=== PATIENT | female | born 1950 | race Caucasian/White ===

== ENCOUNTER → 2017-05-15 | Outpatient (CLI) | payer BC ==
--- NOTE | 2017-05-15 15:49 | CONS ---
CONSULTATION REASON FOR CONSULTATION: Consultation note for sleep apnea HISTORY OF PRESENT ILLNESS: This patient is coming in to renew her CPAP machine and supplies. The patient was diagnosed having sleep apnea back in 2007. At that time, the patient was confirmed to have obstructive sleep apnea and she was titrated to a CPAP pressure of 9 cm of water. The evaluation back then was done by the by Dr. Marquez. Over this past 9 years her treatment has been successful. She has not gained any significant weight and she has maintained a body weight which has been close to low 200s. In fact, she has lost approximately 15 pounds since 2007. Note that at the time of her CPAP titration the patient used to weight 218 pounds and currently she is down to 203. Despite this, weight loss, she is still very compliant with CPAP therapy. She needs her machine every night to stay refreshed and alert during the day. Utilizing a AirFit P10 nose pillows. She is averaging around 7-8 hours of sleep every night. She is in need for supplies and she has also needed in need for a new CPAP machine knowing that the machine itself is not turning off automatically and she has to sometimes unplug the machine itself to turn the system off. The benefit of treatment is still there. No other complaints otherwise for now. PAST MEDICAL HISTORY: Obstructive sleep apnea and hypothyroidism. 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 MEDICATIONS: Include levothyroxine 25 mcg p.o. daily. ALLERGIES: CODEINE AND SULFA. SOCIAL HISTORY: Socially nonsmoker, no history of alcohol. No history of IV drugs. FAMILY HISTORY: Negative for sleep apnea. REVIEW OF SYSTEMS: 12-point review of system was done. Positive findings are mentioned above in the history of present illness. For now no snoring while on CPAP therapy. No insomnia. No choking or gasping sensation. No grinding of the teeth. No sleepwalking or sleep talking. No nightmares. No sweating. No anxiety or panic attacks. No heartburn. No palpitations. No shortness of breath. No chest pain. No other complaints otherwise. PHYSICAL EXAMINATION: BP is 120/75, pulse 98, respirations 16, temperature 98.0, Saturation is 98% on room air. Weight is 203. Height is 5 feet 2 inches and neck size 15.5 inches. General appearance calm comfortable. HEENT: Mallampati class 3. No goiter or neck masses. NECK: Supple. Head is atraumatic, normocephalic. LUNGS: Clear to auscultation. HEART: Sounds regular rhythm. Normal S1, S2. No S3, S4. No murmurs. ABDOMEN: Soft, nontender. No organomegaly. EXTREMITIES: No edema. No cyanosis or clubbing. Skin is negative for any cellulitis, wounds or ulcers. NEUROLOGIC: Alert and oriented x3. No focal neurological deficit. IMPRESSION: 1. Obstructive sleep apnea currently on CPAP pressure of 9 cm of water. Details discussed above. 2. Hypothyroidism. PLAN: The patient has a malfunctioning CPAP unit. I think it is time to upgrade her machine to an AutoSet CPAP Resmet unit which will be set at a fixed pressure of 9 with a C flex of 3. We will renew all of her CPAP supplies. I do not see the need for another sleep study as long as the patient has been very compliant with CPAP therapy over the years and she is benefitting from the treatment. I will send orders for new CPAP unit and the supplies and the patient will see me back in 30 to 90 days to assess clinical response and compliance. KIARRA / TYLER: [id number] /
== END ==
LOC: SLEEP 14:31
PROVIDERS: ATTEND Internal Medicine Critical Care Medicine
DX: G47.33 Obstructive sleep apnea (adult) (pediatric) (principal); E03.9 Hypothyroidism, unspecified; Z88.2 Allergy status to sulfonamides; Z88.5 Allergy status to narcotic agent; Z79.899 Other long term (current) drug therapy
CPT/HCPCS: 99211

== ENCOUNTER → 2017-08-07 | Outpatient (CLI) | payer BC ==
--- NOTE | 2017-08-07 20:38 | PN ---
PROGRESS NOTE CPAP COMPLIANCE FOLLOWUP: This is pleasant 66-year-old female patient with an established diagnosis of obstructive sleep apnea based on a sleep study that was done in 2007. The patient was being treated with a CPAP pressure of 9 cm of water. The patient saw me in the sleep center on 05/15/2017. At that time the patient's old CPAP machine was malfunctioning. I ordered a new CPAP machine for her, and the patient is coming in for a compliancy check. The patient has obtained a new ResMed CPAP unit which is set at a pressure of 9 cm of water. She is using a nose pillow. Based on the compliance data, the patient shows excellent CPAP use and her compliance over the past 30 days has been 100%. Average CPAP use is around 5.6 hours per night. Her leak factor is 6 L/minutes. AHI while on treatment is down to 0.4. She is benefitting from treatment and she has no specific complaints. Her BP is 120/78, pulse 89, respirations 16, weight 195, temperature 98.0, saturation 99% on room air. Stickney score is 5. GENERAL APPEARANCE: Calm, comfortable. No acute distress. Head is atraumatic, normocephalic. Neck is supple. There is no JVD. No goiter or neck masses. LUNGS: Diminished breath sounds bilaterally; otherwise clear. Heart sounds are regular rate and rhythm. Normal S1, S2. No S3. No S4. No murmurs. Abdomen is soft, nontender. No organomegaly. EXTREMITIES: No edema. No cyanosis or clubbing. NEUROLOGIC: Alert and oriented x3. No focal neurological deficits. PSYCHIATRIC: Appropriate mood and affect. IMPRESSION: Obstructive sleep apnea. The patient is coming in for a CPAP compliancy. The patient is currently on CPAP pressure of 9 and treatment has been successful. The patient is waking up alert and awake during the day. No major hypersomnia or sleepiness. PLAN: 1. Continue treatment. 2. Treatment is effective. The patient is benefitting and her compliance data is adequate. 3. Encourage weight loss. 4. See me back in a year's time in followup, earlier if needed. MMODL / IJN: [id number] /
== END | disposition home or self-care (01) ==
LOC: SLEEP 15:50
PROVIDERS: ATTEND Internal Medicine Critical Care Medicine
DX: G47.33 Obstructive sleep apnea (adult) (pediatric) (principal); Z99.89 Dependence on other enabling machines and devices